=== PATIENT | male | born 1980 | race Caucasian/White ===

== ENCOUNTER 2017-09-26 19:35 | Emergency (ER) | payer MEDICAID, OTHER ==
[2017-09-26 19:49] VITALS: BMI 20.5
[2017-09-26 19:53] VITALS: O2SAT 98
[2017-09-26 20:01] VITALS: TEMP 97.8
[2017-09-26 20:41] LABS: ALB/GLOB RATIO 1.7 (1.1-1.8); ALBUMIN 4.8 g/dL (3.0-4.8); ALT/SGPT 28 U/L (7-56); AST/SGOT 31 U/L (17-59); BLOOD UREA NITROGEN 16 mg/dL (7-21); GFR AFRICAN-AMERICAN > 60; GFR NON-AFRICAN AMERICAN > 60
[2017-09-26 20:45] LABS: BASO # 0.01 K/mm3 (0.0-2.0); BASO % 0.1 % (0.0-3.0); EOS % 0.6 % (1.5-5.0); GRAN # 2.62 (1.4-6.5); GRAN % 36.2 % (50.0-68.0); HEMOGLOBIN 14.5 g/dL (14.0-18.0); LYMPH # 3.7 (1.2-3.4); MEAN CELL VOLUME 89.1 fl (80.0-105.0); MEAN CORPUSCULAR HEMOGLOBIN 31.7 pg (25.0-35.0); MEAN CORPUSCULAR HGB CONC 35.5 g/dl (31.0-37.0); MEAN PLATELET VOLUME 9.3 fl (7.0-11.0); MONO # 0.9 (0.1-0.6); MONO % 12.1 % (1.0-6.0); RBC 4.58 10^6/uL (3.5-6.1); WHITE BLOOD COUNT 7.3 10^3/ul (4.5-11.0)
[2017-09-26 20:48] LABS: INR 0.97 (0.93-1.08)
[2017-09-26 20:49] LABS: D DIMER < 200 ng/mL (0-243); PARTIAL THROMBOPLASTIN TIME 33.1 Seconds (25.1-36.5)
[2017-09-26] MEDS ORDERED: Potassium Chloride 20 mEq ER Tab PO STA (20:50)
[2017-09-26 20:53] LABS: B-TYPE NATRIURETIC PEPTIDE 33.9 pg/mL (0-450); TROPONIN I < 0.01 ng/mL
[2017-09-26 21:07] LABS: URINE BILIRUBIN NEGATIVE (NEGATIVE); URINE BLOOD NEGATIVE (NEGATIVE); URINE GLUCOSE (UA) NEGATIVE (NEGATIVE); URINE LEUKOCYTE ESTERASE NEGATIVE Leu/uL (NEGATIVE); URINE PROTEIN NEGATIVE mg/dL (<30 mg/dL); URINE UROBILINOGEN 0.2 E.U./dL (<1 E.U./dL)
[2017-09-26 21:10] LABS: URINE APPEARANCE CLEAR (CLEAR); URINE COLOR STRAW (YELLOW)
--- NOTE | 2017-09-26 21:40 | ED PDOC ---
Arrival/HPI - General Chief Complaint: Back Pain Time Seen by Provider: 09/26/17 19:42 Historian: Patient - History of Present Illness Narrative History of Present Illness (Text): 09/26/17 21:36 37yo male with PMHx of right lung pneumothorax present with complaint of right sided chest pain, greenish productive cough x one month, right sided lower back pain that radiates to his right lower leg, burning pain to his left upper arm. Patient states he has been seen at different facilities for same symptoms and usually discharged home. States he saw his PMD on Tuesday for these symptoms and was given antibiotics for 4days and referred for blood work, which he have not done. He states he came to ED today secondary to the pain. States he doesn't take any analgesic at home. He denies SOB, diaphoresis, LE edema, nausea, vomiting, focal weakness, dizziness, recent surgery, travel, any other complaint. Past Medical History - Provider Review Nursing Documentation Reviewed: Yes - Past Medical History Past Medical History: No Previous - Cardiac Hx Cardiac Disorders: No - Pulmonary Other/Comment: "collapsed lung" - Psychiatric Hx Psychophysiologic Disorder: No Hx Substance Use: No - Surgical History Other/Comment: CHEST TUBE, "1 lung lobe removed" - Anesthesia Hx Anesthesia: Yes - Suicidal Assessment Feels Threatened In Home Enviroment: No Family/Social History - Physician Review Nursing Documentation Reviewed: Yes Family/Social History: Unknown Family HX Smoking Status: Smoker Currrent Status Unknown Hx Alcohol Use: No Hx Substance Use: No Allergies/Home Meds Allergies/Adverse Reactions: Allergies No Known Allergies Allergy (Verified 09/26/17 19:49) Review of Systems - Physician Review All systems were reviewed & negative as marked: Yes - Review of Systems Constitutional: Normal Eyes: Normal ENT: Normal Respiratory: Cough, Sputum. absent: SOB, Wheezing Cardiovascular: Chest Pain Gastrointestinal: Normal Genitourinary Male: Normal Musculoskeletal: Back Pain Skin: Normal Neurological: Normal Endocrine: Normal Hemo/Lymphatic: Normal Psychiatric: Normal Physical Exam Vital Signs Reviewed: Yes Vital Signs Temp Pulse Resp BP Pulse Ox 09/26/17 23:34 88 18 122/72 98 09/26/17 19:57 97.8 F 79 20 129/85 98 09/26/17 19:49 96 H 20 129/85 98 Temperature: Afebrile Blood Pressure: Normal Pulse: Regular Respiratory Rate: Normal Appearance: Positive for: Well-Appearing, Non-Toxic, Comfortable Pain Distress: None Mental Status: Positive for: Alert and Oriented X 3 - Systems Exam Head: Present: Atraumatic, Normocephalic Pupils: Present: PERRL Extroacular Muscles: Present: EOMI Conjunctiva: Present: Normal Mouth: Present: Moist Mucous Membranes Neck: Present: Normal Range of Motion Respiratory/Chest: Present: Clear to Auscultation, Good Air Exchange. No: Respiratory Distress, Accessory Muscle Use Cardiovascular: Present: Regular Rate and Rhythm, Normal S1, S2. No: Murmurs Abdomen: No: Tenderness, Distention, Peritoneal Signs Back: Present: Paraspinal Tenderness (right sided paralumbar/iliac tenderness), Pain with Leg Raise (b/l). No: Midline Tenderness Upper Extremity: Present: Normal Inspection, Normal ROM, NORMAL PULSES, Neurovascularly Intact. No: Cyanosis, Edema, Tenderness, Swelling, Erythema, Deformity Lower Extremity: Present: Normal Inspection. No: Edema Neurological: Present: GCS=15, CN II-XII Intact, Speech Normal Skin: Present: Warm, Dry, Normal Color. No: Rashes Psychiatric: Present: Alert, Oriented x 3, Normal Insight, Normal Concentration Medical Decision Making ED Course and Treatment: 09/26/17 23:39 FINDINGS: Vertebrae: Four true lumbar type vertebral bodies. No acute fracture. Discs/spinal canal/neural foramina: No significant spinal canal stenosis. Soft tissues: Unremarkable. Vasculature: Minimal atherosclerotic disease. Reproductive: Mildly enlarged prostate. IMPRESSION: 1. No fracture. If back pain persists, consider MRI for further evaluation. 2. Prostate enlargement. Followup as clinically warranted. 3. Incidental/non-acute findings are described above. - Lab Interpretations Lab Results: 09/26/17 20:11 09/26/17 20:11 Lab Results 09/26/17 22:45: Urine Opiates Screen Pending, Urine Methadone Screen Negative, Ur Barbiturates Screen Pending, Ur Phencyclidine Scrn Pending, Ur Amphetamines Screen Negative, U Benzodiazepines Scrn Pending, U Oth Cocaine Metabols Pending , U Cannabinoids Screen Pending 09/26/17 20:45: Urine Color Straw, Urine Appearance Clear, Urine pH 7.0, Ur Specific [place] 1.010, Urine Protein Negative, Urine Glucose (UA) Negative, Urine Ketones Negative, Urine Blood Negative, Urine Nitrate Negative, Urine Bilirubin Negative, Urine Urobilinogen 0.2, Ur Leukocyte Esterase Negative 09/26/17 20:11: PT 11.0, INR 0.97, APTT 33.1, D-Dimer, Quantitative < 200 09/26/17 20:11: Sodium 140, Potassium 3.2 L, Chloride 101, Carbon Dioxide 25, Anion Gap 17, BUN 16, Creatinine 0.8, Est GFR ( Amer) > 60, Est GFR (Non- Af Amer) > 60, Random Glucose 90, Calcium 10.0, Magnesium 2.1, Total Bilirubin 0.4, AST 31, ALT 28, Alkaline Phosphatase 51, Lactate Dehydrogenase 349, Total Creatine Kinase 108, Troponin I < 0.01, NT-Pro-B Natriuret Pep 33.9, Total Protein 7.6, Albumin 4.8, Globulin 2.8, Albumin/Globulin Ratio 1.7 09/26/17 20:11: WBC 7.3, RBC 4.58, Hgb 14.5, Hct 40.8 L, MCV 89.1, MCH 31.7, MCHC 35.5, RDW 13.0, Plt Count 384, MPV 9.3, Gran % 36.2 L, Lymph % (Auto) 51.0 H, [place] % (Auto) 12.1 H, Eos % (Auto) 0.6 L, Baso % (Auto) 0.1, Gran # 2.62, Lymph # (Auto) 3.7 H, [place] # (Auto) 0.9 H, Eos # (Auto) 0.0, Baso # (Auto) 0.01 - RAD Interpretation Radiology Orders: 09/26/17 20:01 LUMBAR SPINE W/O CONTRAST [CT] Stat 09/26/17 22:15 CHEST PORTABLE [RAD] Stat - Medication Orders Current Medication Orders: Discontinued Medications Amoxicillin/Clavulanate Potassium (Augmentin 875 Mg-125 Mg Tab) 1 tab PO STAT STA PRN Reason: Protocol Stop: 09/26/17 23:15 Last Admin: 09/26/17 23:29 Dose: 1 tab Potassium Chloride (K-Dur 20 Meq Er Tab) 40 meq PO STAT STA Stop: 09/26/17 20:51 Last Admin: 09/26/17 21:17 Dose: 40 meq Tramadol HCl (Ultram) 50 mg PO STAT STA Stop: 09/26/17 23:15 Last Admin: 09/26/17 23:29 Dose: 50 mg MAR Pain Assessment Document 09/26/17 23:29 SS (Rec: 09/26/17 23:29 SS [id number]) Pain Reassessment Is this a pain reassessment? No Sleep Is patient sleeping during reassessment? No Presence of Pain Presence of Pain Yes Pain Scale Used Pain Scale Used Numeric Location Upper or Lower Lower Pain Location Body Site Back Disposition/Present on Arrival - Present on Arrival Any Indicators Present on Arrival: No History of DVT/PE: No History of Uncontrolled Diabetes: No Urinary Catheter: No History of Decub. Ulcer: No History Surgical Site Infection Following: None - Disposition Have Diagnosis and Disposition been Completed?: Yes Diagnosis: Cough, Back pain, Chest pain Disposition: HOME/ ROUTINE Disposition Time: 23:20 Patient Plan: Discharge Patient Problems: Current Active Problems Problem Status Onset Back pain Acute Chest pain Acute Cough Acute Condition: STABLE Discharge Instructions (ExitCare): Cough in Adults, Chest Pain, Chest Pain (ED) Additional Instructions: Follow up with your Doctor Return to ED for any new symptoms Prescriptions: Amoxicillin/Clavulanate [Augmentin 875 MG-125 MG] 1 tab PO BID #14 tab Benzonatate [Tessalon Perle] 100 mg PO TID #30 capsule Cyclobenzaprine [Cyclobenzaprine HCl] 10 mg PO TID #12 tab Ibuprofen [Motrin Tab] 600 mg PO Q6 #20 tab Referrals: Royal Gold MD [Primary Care Provider] - Follow up with primary Forms: [employer] (Frisian)
--- NOTE | 2017-09-26 22:09 | CT ---
EXAM: CT Lumbar Spine Without Intravenous Contrast CLINICAL HISTORY: 37 years old, male; Pain; Low back pain TECHNIQUE: Axial computed tomography images of the lumbar spine without intravenous contrast. All CT scans at this facility use one or more dose reduction techniques, viz.: automated exposure control; ma/kV adjustment per patient size (including targeted exams where dose is matched to indication; i.e. head); or iterative reconstruction technique. Coronal and sagittal reformatted images were created and reviewed. COMPARISON: No relevant prior studies available. FINDINGS: Vertebrae: Four true lumbar type vertebral bodies. No acute fracture. Discs/spinal canal/neural foramina: No significant spinal canal stenosis. Soft tissues: Unremarkable. Vasculature: Minimal atherosclerotic disease. Reproductive: Mildly enlarged prostate. IMPRESSION: 1. No fracture. If back pain persists, consider MRI for further evaluation. 2. Prostate enlargement. Followup as clinically warranted. 3. Incidental/non-acute findings are described above.
[2017-09-26] MEDS ORDERED: Amoxicillin-Clav 875-125 mg Tab PO STA (23:14)
[2017-09-26 23:35] VITALS: BP 122/72; PULSE 88; RESP 18
[2017-09-26 23:40] LABS: BARBITURATES, UR NEGATIVE (NEGATIVE); BENZODIAZEPINES, UR NEGATIVE (NEGATIVE); OPIATES, UR NEGATIVE (NEGATIVE); PHENCYCLIDINE, UR NEGATIVE (NEGATIVE)
--- NOTE | 2017-09-27 08:40 | RAD ---
HISTORY: cough COMPARISON: 05/25/2016. FINDINGS: LUNGS: The lungs are well inflated and clear. There is a linear scar in the right lower lobe. No focal consolidation. There are postsurgical changes in the right upper lobe with running sutures. PLEURA: No significant pleural effusion identified, no pneumothorax apparent. CARDIOVASCULAR: Normal. OSSEOUS STRUCTURES: No significant abnormalities. VISUALIZED UPPER ABDOMEN: Normal. OTHER FINDINGS: None. IMPRESSION: No active pulmonary disease.
--- NOTE | 2017-09-27 19:03 | CARD ---
APPROVED REPORT EKG Measurement Heart [id number] MD [id number] <Conclusion> Sinus rhythm with short MD Otherwise normal ECG
== END 2017-09-26 23:41 | disposition home or self-care (01) ==
LOC: ED 19:35
DX: M54.5 Low back pain (principal); R05 Cough; R07.9 Chest pain, unspecified
CPT/HCPCS: 71045; 72131; 80053; 81003; 82550; 83615; 83735; 83880; 84484; 85025; 85378; 85610; 85730; 87040; 93005; 99283; G0480